=== PATIENT | female | born 1965 | race Caucasian/White ===

== ENCOUNTER 2025-11-06 11:05 | Outpatient (CLI) | payer OTHER, SELFPAY | END 2025-11-06 11:06 | disposition home or self-care (01) | LOC: ANHAUDIO 11:05 | PROVIDERS: Visit Provider Otolaryngology | DX: H66.92 Otitis media, unspecified, left ear (principal); H90.12 Conductive hearing loss, unilateral, left ear, with unrestricted hearing on the contralateral side | CPT/HCPCS: 92557; 92567 ==